=== PATIENT | female | born 1975 | race African-American/Black ===

== ENCOUNTER 2020-04-17 15:28 | Outpatient (CLI) | payer OTHER, SELFPAY ==
--- NOTE | ~2020-04-17 | MM_ITS ---
EXAMINATION: MM screening [facility] w dandre HISTORY: Screening mammogram TECHNIQUE: Craniocaudal and mediolateral oblique 3-D tomosynthesis images were obtained and synthetic 2-D images were generated. CAD analysis was submitted and interpreted. COMPARISON: 01/15/2019, 01/23/2018 bilateral digital screening mammogram examinations 01/26/2017 bilateral diagnostic digital mammogram 01/18/2017 bilateral digital screening mammogram BREAST PARENCHYMAL COMPOSITION: There are scattered areas of fibroglandular density. FINDINGS: There is no evidence of suspicious mass, calcification, or architectural distortion to sugg est malignancy in either breast. There has been no suspicious interval change. IMPRESSION: 1. No mammographic evidence of malignancy. 2. Recommend routine screening mammography in one year. BI-RADS Category 1: Negative Reviewed, dictated and finalized at location A.
== END 2020-04-17 15:29 | disposition home or self-care (01) ==
PROVIDERS: PCP Family Medicine; Visit Provider Obstetrics & Gynecology Gynecology
DX: Z12.31 Encounter for screening mammogram for malignant neoplasm of breast (principal)
CPT/HCPCS: 77063; 77067

== ENCOUNTER 2020-09-18 15:25 | Outpatient (CLI) | payer OTHER, SELFPAY ==
--- NOTE | ~2020-09-18 | XR_ITS ---
EXAMINATION: XR chest 2V EXAM DATE: 09/18/2020 15:49 INDICATION: Chest fracture 6-7 months. TECHNIQUE: Frontal and lateral projections of the chest obtained and reviewed. Comparison is made to prior examination from 07/16/12. FINDINGS: The lungs are clear. There are no pleural effusions. The cardiomediastinal silhouette is within normal limits. There is no pneumothorax suspected. The bones and soft tissues are unremarkab le. IMPRESSION: Unremarkable chest x-ray exam. Reviewed, dictated and finalized at location A. ITAL DIRECTOR
== END 2020-09-18 15:26 | disposition home or self-care (01) ==
LOC: ANHIMG 15:27
PROVIDERS: PCP Nurse Practitioner Family; Visit Provider Nurse Practitioner Family
DX: R07.89 Other chest pain (principal)
CPT/HCPCS: 71046

== ENCOUNTER 2021-06-30 16:21 | Outpatient (CLI) | payer OTHER, SELFPAY ==
--- NOTE | ~2021-06-30 | MM_ITS ---
EXAMINATION: MM screening [facility] BI w dandre HISTORY: Screening TECHNIQUE: Craniocaudal and mediolateral oblique 3-D tomosynthesis images were obtained and synthetic 2-D images were generated. CAD analysis was submitted and interpreted. COMPARISON: Comparison to multiple prior studies sequentially, with oldest reviewed study dated 01/2016. BREAST PARENCHYMAL COMPOSITION: There are scattered areas of fibroglandular density. FINDINGS: There is no evidence of suspicious mass, calcification, or architectural distortion to sugg est malignancy in either breast. There has been no suspicious interval change. IMPRESSION: 1. No mammographic evidence of malignancy. 2. Recommend routine screening mammography in one year. BI-RADS Category 1: Negative Reviewed, dictated and finalized at location A.
== END 2021-06-30 16:22 | disposition home or self-care (01) ==
LOC: ANHIMG 16:23
PROVIDERS: PCP Nurse Practitioner Family; Visit Provider Obstetrics & Gynecology Gynecology
DX: Z12.31 Encounter for screening mammogram for malignant neoplasm of breast (principal)
CPT/HCPCS: 77063; 77067

== ENCOUNTER → 2022-06-17 12:37 | Outpatient (CLI) | payer OTHER, SELFPAY ==
--- NOTE | ~2022-06-17 | US_ITS ---
EXAMINATION: US transvaginal DATE: 06/17/2022 13:17 INDICATION: Postmenopausal bleeding, pelvic pain TECHNIQUE: Multiple endovaginal sonographic images of the pelvis were obtained. COMPARISON: None. FINDINGS: The uterus measures 6.7 x 4.1 x 4.7 cm. A 2.2 cm isoechoic lesion of the lower uterine segm ent has the appearance of a subserosal fibroid. The endometrial complex measures 4 mm. The right ovar y measures 1.9 x 1 x 1.3 cm. The left ovary measures 2 x 1.6 x 1.7 cm. There is normal vascular flow in the ovaries. There is no free fluid in the pelvis. IMPRESSION: 1. No sonographic correlate for the patient's symptoms. Reviewed, dictated and finalized at location A.
== END ==
PROVIDERS: PCP Obstetrics & Gynecology Gynecology; Visit Provider Obstetrics & Gynecology Gynecology
DX: N95.0 Postmenopausal bleeding (principal)
CPT/HCPCS: 76830

== ENCOUNTER 2022-08-25 14:51 | Outpatient (CLI) | payer OTHER, SELFPAY ==
--- NOTE | ~2022-08-25 | DEXA_ITS ---
Bone Density Report Name: MILEY DE SANTIAGO Age: 46 Sex: Female Ethnicity: White Date of : 1975 Indication: postmenopausal; Referring Provider: MILAN MATTSON Study: Bone densitometry was performed. Exam Date: August 25, 2022 Accession number: [id number] Bone Density: Region BMD T-score Z-score Classification AP Spine(L1-L4) 0.897 -1.4 -0.7 Osteopenia Femoral Neck (Left) 1.046 1.8 2.4 Normal Total Hip (Left) 1.136 1.6 2.0 Normal Femoral Neck (Right) 1.028 1.6 2.3 Normal Total Hip (Right) 1.110 1.4 1.8 Normal Total Hip Mean 1.123 1.5 1.9 Normal World Health Organization criteria for BMD impression classify patients as: Normal (T-score at or above -1.0), Osteopenia (T-score between -1.0 and -2.5), or Osteoporosis (T-score at or below -2.5). 10-year Fracture Risk(1): Major Osteoporotic Fracture 2.9% Hip Fracture < 0.1% Reported Risk Factors: [place] (), Neck BMD=1.028, BMI=29.3 (1) FRAX(R) Version 3.08. Fracture probability calculated for an untreated patient. Fracture probability may be lower if the patient has received treatment. Clinical Information Provided by Patient: Patient maximum height was 59 Menopause Age: 43 Drinks caffeinated beverages Onset of menses at age 8 Number of children 1 Impression: The patient has low bone mass, based on the Total Spine T-score. Discussion: BONE DENSITY IS LOW AT ONE OR MORE SKELETAL SITES. This patient's lowest T-score is low at one or more skeletal sites. It meets the World Health Organization's (WHO) criteria for ?low bone mass? (T-score between -1.0 and -2.5). The patient's 10-year risk of fracture as calculated by FRAX is less than the threshold where pharmacological therapy is recommended by the National Osteoporosis Foundation (NOF). However, all treatment decisions require clinical judgment and consideration of individual patient factors, including patient preferences, comorbidities, previous drug use, risk factors not captured in the FRAX model (e.g., frailty, falls, vitamin D deficiency, increased bone turnover, interval significant decline in bone density) and possible under or overestimation of fracture risk by FRAX. The patient should follow a healthful lifestyle (good nutrition with adequate calcium and vitamin D, and appropriate weight-bearing exercise). Follow-Up: Consider repeating this study in 2 to 3 years to reassess this patient's status, or sooner if there is some new clinical indication. Reported by: [facility] on 08/25/2022 3:32:00 PM. Reviewed, dictated and finalized at location A. KATELYNN
--- NOTE | ~2022-08-25 | MM_ITS ---
EXAMINATION: MM screening [facility] BI w dandre HISTORY: Screening mammogram TECHNIQUE: Craniocaudal and mediolateral oblique 3-D tomosynthesis images were obtained and synthetic 2-D images were generated. CAD analysis was submitted and interpreted. COMPARISON: 06/30/2021, 04/17/2020, 01/15/2019 BREAST PARENCHYMAL COMPOSITION: There are scattered areas of fibroglandular density. FINDINGS: No suspicious mass, calcification, or architectural distortion are identified in either zane ast to suggest malignancy. There has been no suspicious interval change. IMPRESSION: 1. No mammographic evidence of malignancy. 2. Recommend routine screening mammography in one year. BI-RADS Category 1: Negative Reviewed, dictated and finalized at location A.
== END 2022-08-25 14:52 | disposition home or self-care (01) ==
PROVIDERS: Visit Provider Obstetrics & Gynecology Gynecology
DX: Z12.31 Encounter for screening mammogram for malignant neoplasm of breast (principal); Z78.0 Asymptomatic menopausal state; M85.88 Other specified disorders of bone density and structure, other site
CPT/HCPCS: 77063; 77067; 77080

== ENCOUNTER 2024-08-06 09:39 | Outpatient (CLI) | payer OTHER, SELFPAY ==
--- NOTE | ~2024-08-06 | MM_ITS ---
EXAMINATION: MM screening [facility] w d[facility]re HISTORY: Screening TECHNIQUE: Craniocaudal and mediolateral oblique 3-D tomosynthesis images were obtained and synthetic 2-D images were generated. CAD analysis was submitted and interpreted. COMPARISON: Comparison to multiple prior studies sequentially, with oldest reviewed study dated 06/28. BREAST PARENCHYMAL COMPOSITION: Not dense: There are scattered areas of fibroglandular density. FINDINGS: There is no evidence of suspicious mass, calcification, or architectural distortion to sugg est malignancy in either breast. There has been no suspicious interval change. IMPRESSION: 1. No mammographic evidence of malignancy. 2. Recommend routine screening mammography in one year. BI-RADS Category 1: Negative Reviewed, dictated and finalized at location B.
== END 2024-08-06 09:40 | disposition home or self-care (01) ==
PROVIDERS: Visit Provider Obstetrics & Gynecology Gynecology
DX: Z12.31 Encounter for screening mammogram for malignant neoplasm of breast (principal)
CPT/HCPCS: 77063; 77067

== ENCOUNTER 2025-01-10 13:34 | Outpatient (CLI) | payer OTHER, SELFPAY ==
--- NOTE | ~2025-01-10 | DEXA_ITS ---
Bone Density Report Name: MILEY DE SANTIAGO Age: 49 Sex: Female Ethnicity: White Date of : 1975 Indication: osteopenia; Referring Provider: MILAN MATTSON Study: Bone densitometry was performed. Exam Date: January 10, 2025 Accession number: [id number] Bone Density: Region BMD T-score Z-score Classification AP Spine(L1-L4) 0.869 -1.6 -0.8 Osteopenia Femoral Neck (Left) 1.101 2.3 3.1 Normal Total Hip (Left) 1.190 2.0 2.5 Normal Femoral Neck (Right) 1.049 1.8 2.6 Normal Total Hip (Right) 1.150 1.7 2.2 Normal Total Hip Mean 1.170 1.9 2.4 Normal World Health Organization criteria for BMD impression classify patients as: Normal (T-score at or above -1.0), Osteopenia (T-score between -1.0 and -2.5), or Osteoporosis (T-score at or below -2.5). 10-year Fracture Risk(1): Major Osteoporotic Fracture 3.3% Hip Fracture < 0.1% Reported Risk Factors: [place] (), Neck BMD=1.049, BMI=29.3 (1) FRAX(R) Version 3.08. Fracture probability calculated for an untreated patient. Fracture probability may be lower if the patient has received treatment. Previous Exams: Region Exam Age BMD T-score BMD Change BMD Change Date g/cm2 vs Baseline vs Previous AP Spine (L1-L4) 01/10/2025 49 0.869 -1.6 -0.028 (-3.1%) -0.028 (-3.1%) 08/25/2022 46 0.897 -1.4 Total Hip(Left) 01/10/2025 49 1.190 2.0 0.054 (4.7%)# 0.054 (4.7%)# 08/25/2022 46 1.136 1.6 Total Hip(Right) 01/10/2025 49 1.150 1.7 0.040 (3.6%)# 0.040 (3.6%)# 08/25/2022 46 1.110 1.4 *Denotes significance at 95% confidence level, LSC for AP Spine = 0.022 g/cm2, LSC for Total Hip = 0.027 g/cm2 # Denotes dissimilar scan types or analysis methods Clinical Information Provided by Patient: Has used the following medications: Vitamin D, Calcium Patient maximum height was 59 Menopause Age: 43 Drinks caffeinated beverages Onset of menses at age 8 Number of children 1 Impression: The patient has low bone mass, based on the Total Spine T-score. No significant bone loss was observed. Discussion: BONE DENSITY IS LOW AT ONE OR MORE SKELETAL SITES. This patient's lowest T-score is low at one or more skeletal sites. It meets the World Health Organization's (WHO) criteria for ?low bone mass? (T-score between -1.0 and -2.5). The patient's 10-year risk of fracture as calculated by FRAX is less than the threshold where pharmacological therapy is recommended by the National Osteoporosis Foundation (NOF). However, all treatment decisions require clinical judgment and consideration of individual patient factors, including patient preferences, comorbidities, previous drug use, risk factors not captured in the FRAX model (e.g., frailty, falls, vitamin D deficiency, increased bone turnover, interval significant decline in bone density) and possible under or overestimation of fracture risk by FRAX. The patient should follow a healthful lifestyle (good nutrition with adequate calcium and vitamin D, and appropriate weight-bearing exercise). Follow-Up: Consider repeating this study in 2 to 3 years to reassess this patient's status, or sooner if there is some new clinical indication. Reported by: [facility]IL[facility] on 01/10/2025 2:03:00 PM. Reviewed, dictated and finalized at location A.
--- OUTSIDE RECORDS SUMMARY | 2025-01-10 13:37 | XMS_ITS | Clinical Summary ---
Author Organization [address] Address [address] [place] [id number] Care Team Providers Care Business Systems Developer Name Role Phone Unknown, Notinfile Primary Care Provider Unavail able Allergies No known active allergies Medications fish oil-dha-epa 1,200-144-216 mg capsule Take by mouth Active coenzyme Q10 10 mg capsule Take 1 capsule (10 mg total) by mouth daily Active Active Problems No known active problems Encounters Date Type Department Care Team Description 11/13/2024 Telephone [facility] Medical [facility] Convenient Care at [address] [phone] Helga Araiza MA from Last 3 Months Surgical History Surgery Date Site/Laterality Comments SECTION Social History Tobacco Use Types Packs/Day Years Used Date Smoking Tobacco: Never Smokeless Tobacco: Never Comments Unknown Sex and Gender Information Value Date Recorded Sex Assigned at Not on file Legal Sex Female 2:35 AM OUT AND OUT CIGAR MAKER HAND Gender Identity Not on file Sexual Orientation Not on file Obstetrics History Last Filed Vital Signs Vital Sign Reading Time Taken Comments Blood Pressure 126/80 10/04/2024 2:37 PM OUT AND OUT CIGAR MAKER HAND Pulse 76 10/04/2024 2:37 PM OUT AND OUT CIGAR MAKER HAND Temperature 36.8 C (98.3 F) 10/04/2024 2:37 PM OUT AND OUT CIGAR MAKER HAND Respiratory Rate 20 10/04/2024 2:37 PM OUT AND OUT CIGAR MAKER HAND Oxygen Saturation 98% 10/04/2024 2:3 7 PM OUT AND OUT CIGAR MAKER HAND Inhaled Oxygen Concentration - - Weight 63.5 kg (140 lb) 10/04/2024 2:37 PM OUT AND OUT CIGAR MAKER HAND Patient reported Height 149.9 cm (4' 11 ) 10/04/2024 2:3 7 PM OUT AND OUT CIGAR MAKER HAND Patient reported Body Mass Index 28.28 10/04/2024 2:37 PM OUT AND OUT CIGAR MAKER HAND Plan of Treatment Health Maintenance Due Date Last Done Comments Breast Cancer Screening-Mammogram 1975 Cervical Cancer Screening 1975 Colon Cancer Screening-Colonoscopy 1973 Depression Screening 1975 Hepatitis C Screening 1973 DTaP/Tdap/Td Vaccine (1 - Tdap) 1984 Hepatitis B Screening 1991 Regular Well Visit/Exam 18-64 1991 Zoster Vaccine (1 of 2) 2023 Covid-19 Vaccine ( season) 2024 11/03/2023, 10/15/2022, 10/25/2021, Additional history exists Influenza Vaccine (#1) 2024 07/31/2020 Pneumococcal vaccine <65 Aged Out No longer eligible based on patient's age to complete this topic Insurance [facility] HMO/PPO Address: [facility] [address] [place] [address] Care Teams Business Systems Developer Relationship Specialty Start Date End Date Unknown, Notinfile PCP - General 10/04/24
--- OUTSIDE RECORDS SUMMARY | 2025-01-10 13:37 | XMS_ITS | Referral Summary ---
Author Organization [facility] Address [address] [place] [address] Care Team Providers Care Environment Coordinator Name Role Phone Unavailable Primary Care Provider Unavailabl e Source Comments [facility],non-owned Affiliates and Associated Physician Practices is amultiple site organization consisting of ambulatory clinics and hospital sitesin [place], [place], [place] and [place]. This disclosure is being madepursuant to the Care Everywhere program and may not contain all information available regarding this patient. Last updated 18.[facility] Social History Tobacco Use Types Packs/Day Years Used Date Smoking Tobacco: Never Assessed Sex and Gender Information Value Date Recorded Sex Assigned at Not on file Gender Identity Not on file Sexual Orientation Not on file Plan of Treatment Not on file
--- OUTSIDE RECORDS SUMMARY | 2025-01-10 13:37 | XMS_ITS | Patient Health Summary ---
Author Organization [facility] Address [address] [place] [address] Care Team Providers Care Seafood Preparer Name Role Phone Unavailable Primary Care Provider Unavailabl e Note from [facility],non-owned Affiliates and Associated Physician Practices is amultiple site organization consisting of ambulatory clinics and hospital sitesin [place], [place], [place] and [place]. This disclosure is being madepursuant to the Care Everywhere program and may not contain all information available regarding this patient. Last updated 18.[facility] Social History Tobacco Use Types Packs/Day Years Used Date Smoking Tobacco: Never Assessed Sex and Gender Information Value Date Recorded Sex Assigned at Not on file Gender Identity Not on file Sexual Orientation Not on file Procedures * SONOGRAM - COMPLETE(Performed 08/10/2010) Performed for Advanced maternal age Results * SONOGRAM - COMPLETE (08/10/2010) Anatomical Region Laterality Modality Other Henna Martines MD [facility] ORDERABLES
--- OUTSIDE RECORDS SUMMARY | 2025-01-10 13:37 | XMS_ITS | Encounter Summary ---
Author Organization [facility] Healthcare Address [address] [place] [id number] Care Team Providers Care Hazardous Materials Driver Name Role Phone Unknown, Kym Primary Care Provider Unavail able Encounter Details Date Type Department Care Team (Late st Contact Info) Description 11/13/2024 Telephone [facility] Medical Group Convenient Care at [address] [phone] Helga Araiza MA Social History Tobacco Use Types Packs/Day Years Used Date Smoking Tobacco: Never Smokeless Tobacco: Never Comments Unknown Sex and Gender Information Value Date Recorded Sex Assigned at Not on file Legal Sex Female 2:35 AM EDUCATION AND TRAINING COORDINATOR Gender Identity Not on file Sexual Orientation Not on file documented as of this encounter Plan of Treatment Not on file documented as of this encounter Visit Diagnoses Not on filedocumented in this encounter Care Teams Hazardous Materials Driver Relationship Specialty Start Date End Date Unknown, Kym PCP - General 10/04/24 documented as of this encounter
--- OUTSIDE RECORDS SUMMARY | 2025-01-10 13:37 | XMS_ITS | Referral Summary ---
Author Organization [address] Address [address] [place] [id number] Care Team Providers Care Python Engineer Name Role Phone Unknown, Notinfile Primary Care Provider Unavail able Encounters Date Type Department Care Team Description 11/13/2024 Telephone [facility] Medical Group Convenient Care at [address] [phone] Helga Araiza MA from Last 3 Months Allergies No known active allergies Medications fish oil-dha-epa 1,200-144-216 mg capsule Take by mouth Active coenzyme Q10 10 mg capsule Take 1 capsule (10 mg total) by mouth daily Active Active Problems No known active problems Social History Tobacco Use Types Packs/Day Years Used Date Smoking Tobacco: Never Smokeless Tobacco: Never Comments Unknown Sex and Gender Information Value Date Recorded Sex Assigned at Not on file Legal Sex Female 2:35 AM COMMUTATOR INSPECTOR Gender Identity Not on file Sexual Orientation Not on file Last Filed Vital Signs Vital Sign Reading Time Taken Comments Blood Pressure 126/80 10/04/2024 2:37 PM COMMUTATOR INSPECTOR Pulse 76 10/04/2024 2:37 PM COMMUTATOR INSPECTOR Temperature 36.8 C (98.3 F) 10/04/2024 2:37 PM COMMUTATOR INSPECTOR Respiratory Rate 20 10/04/2024 2:37 PM COMMUTATOR INSPECTOR Oxygen Saturation 98% 10/04/2024 2:3 7 PM COMMUTATOR INSPECTOR Inhaled Oxygen Concentration - - Weight 63.5 kg (140 lb) 10/04/2024 2:37 PM COMMUTATOR INSPECTOR Patient reported Height 149.9 cm (4' 11 ) 10/04/2024 2:3 7 PM COMMUTATOR INSPECTOR Patient reported Body Mass Index 28.28 10/04/2024 2:37 PM COMMUTATOR INSPECTOR Plan of Treatment Not on file Insurance [facility] Care Teams Python Engineer Relationship Specialty Start Date End Date Unknown, Notinfile PCP - General 10/04/24
--- OUTSIDE RECORDS SUMMARY | 2025-01-10 13:37 | XMS_ITS | Clinical Summary ---
Author Organization [facility] [employer] Address [address] [place] [address] Care Team Providers Care Window Maker Name Role Phone Unavailable Primary Care Provider Unavailabl e Source Comments [facility],non-owned Affiliates and Associated Physician Practices is amultiple site organization consisting of ambulatory clinics and hospital sitesin [place], [place], [place] and [place]. This disclosure is being madepursuant to the Care Everywhere program and may not contain all information available regarding this patient. Last updated 18.[facility] [employer] Social History Tobacco Use Types Packs/Day Years Used Date Smoking Tobacco: Never Assessed Sex and Gender Information Value Date Recorded Sex Assigned at Not on file Gender Identity Not on file Sexual Orientation Not on file Plan of Treatment Health Maintenance Due Date Last Done Comments COLOGUARD (AGES 45-75) - COL ON CA SCREENING 1973 COLON MONITORING 1973 COLONOSCOPY - COLON CA SCREENING 1973 CT COLONOGRAPHY - COLON CA SCREENING 1973 Colorectal Cancer Screening 1973 FIT - COLON CA SCREENING 1973 FLEX SIG - COLON CA SCREENING 1973 LIPID TESTING 1973 MAMMOGRAM 1973 PAP SMEAR 1973 HIV SCREENING 1988 HEPATITIS C SCREENING 11/11/1991 DTAP/TDAP/TD VACCINES (1 - Tdap) 1992 HEPATITIS B VACCINE (1 of 3 - 19+ 3-dose series) 1992 PNEUMOCOCCAL VACCINE 50+ (1 of 1 - PCV) 2023 ZOSTER VACCINE (1 of 2) 2023 COVID-19 VACCINE ( - 2023-2 5 season) 2024 INFLUENZA VACCINE (#1) 2024 DEPRESSION SCREENING 10/30/2024 HIB VACCINE Aged Out No longer eligi ble based on patient's age to complete this topic HPV VACCINE Aged Out No longer eligi ble based on patient's age to complete this topic MENINGOCOCCAL (Group B) VACC INE SHARED DECISION-MAKING Aged Out No longer eligibl e based on patient's age to complete this topic MENINGOCOCCAL GROUPS A/C/Y/W VACCINE Aged Out No longer eligible b ased on patient's age to complete this topic PNEUMOCOCCAL VACCINE Aged Out No long er eligible based on patient's age to complete this topic
== END 2025-01-10 13:35 | disposition home or self-care (01) ==
LOC: ANHIMG 13:36
PROVIDERS: PCP Family Medicine; Visit Provider Obstetrics & Gynecology Gynecology
DX: M85.88 Other specified disorders of bone density and structure, other site (principal); Z78.0 Asymptomatic menopausal state
CPT/HCPCS: 77080

== ENCOUNTER 2025-08-28 15:45 | Outpatient (CLI) | payer OTHER, SELFPAY ==
--- NOTE | ~2025-08-28 | MM_ITS ---
EXAMINATION: MM screening [facility] BI w dandre HISTORY: Screening TECHNIQUE: Craniocaudal and mediolateral oblique 3-D tomosynthesis images were obtained and synthetic 2-D images were generated. CAD analysis was submitted and interpreted. COMPARISON: Comparison to multiple prior studies sequentially, with oldest reviewed study dated 01/23/2018. BREAST PARENCHYMAL COMPOSITION: Not dense: There are scattered areas of fibroglandular density. FINDINGS: There is no evidence of suspicious mass, calcification, or architectural distortion to suggest malignancy in either breast. There has been no suspicious interval change. IMPRESSION: 1. No mammographic evidence of malignancy. 2. Recommend routine screening mammography in one year. BI-RADS Category 1: Negative Reviewed, dictated and finalized at location B.
--- OUTSIDE RECORDS SUMMARY | 2025-08-28 15:49 | XMS_ITS | Clinical Summary ---
Author Organization [address] Address [address] [place] [address] Care Team Providers Care Brake Repairer Air Name Role Phone Daisy Verduzco DO Primary Care Provider +1- [phone] Allergies No known active allergies Medications fish oil-dha-epa 1,200-144-216 mg capsule Take by mouth Activ e coenzyme Q10 10 mg capsule Take 1 capsule (10 mg total) by mouth daily Active methylPREDNISol one (MEDROL DOSEPACK) 4 mg Dosepack Take as directed on package. 21 tablet 08/25/2025 08/31/20 Active Active Problems Problem Noted Date Diagnosed Date Dyslipidemia 08/22/2025 Vitamin D deficiency 08/22/2025 Encounters Date Type Department Care Team Description 08/25/2025 12:40 PM CDT Ancillary Procedure [facility] Imaging at [address] [address] Acute cough 08/25/2025 12:15 PM CDT Office Visit [facility] Convenient Care at [address] [address] Dinah Wilson PA Laryngitis (Primary Dx); Acute cough 08/25/2025 Results Follow-Up [facility] at [address] [address] Dinah Wilson PA XR Chest Pa Lateral 2 Views 08/23/2025 Results Follow-Up [facility] at [address] [phone] Andria Montalvo NP Influenza A/B, RSV, and COVID-19 PCR Nasopharyngeal, Throat culture Throat 08/22/2025 6:45 PM CDT Office Visit [facility] at [address] [address] Andria Montalvo NP Nasopharyngitis acute (Primary Dx) 08/22/2025 6:30 PM CDT - 08/22/2025 11:59 [place] [address] Nasopharyngitis acute Discharge Disposition: Discharge to home or self care from Last 3 Months Surgical History Surgery Date Site/Laterality Comments SECTION Social History Tobacco Use Types Packs/Day Years Used Date Smoking Tobacco: Never Smokeless Tobacco: Never Comments Unknown Sex and Gender Information Value Date Recorded Sex Assigned at Not on file 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 Gender Identity Not on file Sexual Orientation Not on file Obstetrics History Last Filed Vital Signs Vital Sign Reading Time Taken Comments Blood Pressure 134/82 08/25/2025 12:15 PM CDT Pulse 75 08/25/2025 12:15 PM CDT Temperature 37.2 C (98.9 F) 08/25/2025 12:15 PM CDT Respiratory Rate 20 08/25/2025 12:15 PM CDT Oxygen Saturation 99% 08/25/2025 12:15 PM CDT Inhaled Oxygen Concentration - - Weight 59 kg (130 lb) 08/25/2025 12:15 PM CDT Height 152.4 cm (5') 08/22/2025 6:12 PM CDT Body Mass Index 25.39 08/22/2025 6:12 PM CDT Plan of Treatment Health Maintenance Due Date Last Done Comments Breast Cancer Screening-Mammogram 1973 Cervical Cancer Screening 1973 Colon Cancer Screening-Colonoscopy 1973 Depression Screening 1973 Hepatitis C Screening 1973 DTaP/Tdap/Td Vaccine (1 - Tdap) 1984 Hepatitis B Screening 1991 Regular Well Visit/Exam 18-64 1991 Zoster Vaccine (1 of 2) 2023 Covid-19 Vaccine ( season) 2025 11/03/2023, 10/15/2022, 10/25/2021, Additional history exists Influenza Vaccine (#1) 2025 07/31/2020 Pneumococcal vaccine <65 Aged Out No longer eligible based on patient's age to complete this topic Procedures Procedure Name Priority Date/Time Associated Diagnosis Comments XR CHEST PA LATERAL 2 VIEWS Schedule GINA, Read GINA (Appt Today, Awaiting Results) 08/25/2025 12:47 PM CDT Acute cough POCT RAPID STREP Routine 08/25/2025 12:3 4 PM CDT Laryngitis THROAT CULTURE Routine 08/22/2025 6:30 PM CDT Nasopharyngitis acute INFLUENZA A/B, RSV, AND COVID-19 PCR Routine 08/22/2025 6:30 PM CDT Nasopharyngitis acute POCT RAPID STREP Routine 08/22/2025 6:09 PM CDT Nasopharyngitis acute from Last 3 Months Results * XR Chest Pa Lateral 2 Views (08/25/2025 12:47 PM CDT) Anatomical Region Laterality Modality Body, Chest N/A Digital Radiogra phy 08/25/2025 12:5 9 PM CDT Impressions 08/25/2025 12:59 PM CDT No acute cardiopulmonary process. Electronically signed by: Jacques Mccloud M.D. Narrative 08/25/2025 12:59 PM CDT EXAMINATION: XR CHEST PA LATERAL 2 VIEWS HISTORY: Acute cough. TECHNIQUE: Frontal and lateral radiographic views acquired of the chest. COMPARISON: No prior chest imaging available at time of interpretation. FINDINGS: Trachea midline. Heart normal in size and contour. Hilar and mediastinal structures unremarkable. No focal consolidation. No pleural effusion. No pneumothorax. No tubes/lines in the chest. No acute osseous abnormality. Procedure Note Jacques Mccloud MD - 08/25/2025 EXAMINATION: XR CHEST PA LATERAL 2 VIEWS HISTORY: Acute cough. TECHNIQUE: Frontal and lateral radiographic views acquired of the chest. COMPARISON: No prior chest imaging available at time of interpretation. FINDINGS: Trachea midline. Heart normal in size and contour. Hilar and mediastinal structures unremarkable. No focal consolidation. No pleural effusion. No pneumothorax. No tubes/lines in the chest. No acute osseous abnormality. IMPRESSION: No acute cardiopulmonary process. Electronically signed by: Jacques Mccloud M.D. Dinah GALLO IMG XR PROCEDURES Final Result * POCT rapid strep A (08/25/2025 12:34 PM CDT) Pathologist [facility] Rapid Strep A, POC Negative Negative Swab 08/25/2025 12:3 4 PM CDT Dinah GALLO POINT OF CARE TEST ORDER HUMERA Final Result * Influenza A/B, RSV, and COVID-19 PCR Nasopharyngeal (08/22/2025 6:30 PM CDT) [facility] COVID-19 RNA Negative Negative [facility] Influenza A RNA Negative Negative [facility] Influenza B RNA Negative Negative [facility] RSV RNA Negative Negative [facility] Comment: Interpretive data: Testing performed by [facility]. This test is performed using the [employer] Xpert Xpress CoV-2/Flu/RSV plus assay. This is a multiplex, real-time reverse transcriptase PCR assay intended for the qualitative detection of nucleic acid from SARS-CoV-2, influenza A, influenza B, and respiratory syncytial virus. This assay has been cleared by the [place] Food and Drug administration. The performance characteristics have been verified by the [facility]. Results must be considered in the clinical context, and a negative result does not rule out infection. Interpretive Data last revised 2023 Nasopharyngeal 08/22/2025 6: 30 PM CDT 08/22/2025 9:37 PM CDT Narrative [facility] - 08/22/2025 10:20 PM CDT Is the Patient experiencing symptoms consistent with COVID?->Yes Andria Montalvo NP LAB MICROBIOLOGY - GENERAL ORD ERABLES Final Result [facility] [address] Department [place] [address] [facility] * Throat culture Throat (08/22/2025 6:30 PM CDT) Report Final Report: No growth of pathogens. Comment:Testing performed by : [facility], [address] [place] [address] Throat 08/22/2025 6:30 PM CDT 08/23/2025 12:21 AM CDT Narrative [facility] 08/23/2025 8:33 PM CDT Testing performed by [facility] ([phone]). Andria Montalvo NP LAB MICROBIOLOGY - GENERAL ORD ERABLES Final Result Performing Organization Address City/[facility]/ZIP Co de Phone Number [facility] [address] [address] [place] [address] * POCT rapid strep A (08/22/2025 6:09 PM CDT) Rapid Strep A, POC Negative Negative Swab 08/22/2025 6:09 PM CDT Andria Montalvo NP POINT OF CARE TEST ORDERABLES Final Result from Last 3 Months Insurance [facility] Care Teams Brake Repairer Air Relationship Specialty Start Date End Date Daisy Verduzco DO [facility] [address] [place] [phone] PCP - General Family Medicine 08/22/25
--- OUTSIDE RECORDS SUMMARY | 2025-08-28 15:49 | XMS_ITS | Encounter Summary ---
Author Organization [facility] Healthcare Address [address] [place] [address] Care Team Providers Care Fisher Spear Name Role Phone Unknown, Kym Primary Care Provider Unavail able aDisy Verduzco DO Primary Care Provider +1- [phone] Encounter Details Date Type Department Care Team (Late st Contact Info) Description 11/13/2024 Telephone [facility] Care at [address] [phone] Helga Araiza MA Social History Tobacco Use Types Packs/Day Years Used Date Smoking Tobacco: Never Smokeless Tobacco: Never Comments Unknown Sex and Gender Information Value Date Recorded Sex Assigned at Not on file 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 Gender Identity Not on file Sexual Orientation Not on file documented as of this encounter Plan of Treatment Not on file documented as of this encounter Visit Diagnoses Not on filedocumented in this encounter Additional Health Concerns Infection Onset Date Last Indicated Resolved Time COVID: Suspected 08/22/2025 08/22/2025 08/22/2025 10:21 PM CDT documented as of this encounter Care Teams Fisher Spear Relationship Specialty Start Date End Date Unknown, Kym PCP - General 10/04/24 08/21/25 Daisy Verduzco DO [address] [place] [address] [place] [address] PCP - General Family Medicine 08/22/25 documented as of this encounter
--- OUTSIDE RECORDS SUMMARY | 2025-08-28 15:49 | XMS_ITS | Encounter Summary ---
Author Organization [facility] Healthcare Address [address] [place] [address] Care Team Providers Care Package Center Supervisor Name Role Phone Daisy Verduzco DO Primary Care Provider +1- [phone] Encounter Details Date Type Department Care Team (Late st Contact Info) Description 08/23/2025 Results Follow-Up [facility] Convenient Care at [place] [address] [place] [address] Andria Montalvo NP [address] [place] [address] [address] [place] [address] Influenza A/B, RSV, and COVID-19 PCR Nasopharyngeal, Throat culture Throat Social History Tobacco Use Types Packs/Day Years Used Date Smoking Tobacco: Never Smokeless Tobacco: Never Comments Unknown Sex and Gender Information Value Date Recorded Sex Assigned at Not on file 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 * Result Encounter Note - Jayshree Freeman LPN - 08/24/2025 9:27 AM CDT LVM for pt to return call to clinic to notify them of labs results. * Result Encounter Note - Andria Montalvo NP - 08/24/2025 7:51 AM CDT Please alert patient of negative strep culture. Patient should continue tylenol/ibuprofen as directed for discomfort and f/u with PCP if symptoms persist. * Result Encounter Note - Jayshree Freeman LPN - 08/23/2025 10:48 AM CDT Notified pt of their results and follow up instructions. Pt verbalized understanding. * Result Encounter Note - Jayshree Freeman LPN - 08/23/2025 10:30 AM CDT LVM for pt to return call to clinic to notify them of labs results. * Result Encounter Note - Andria Montalvo NP - 08/23/2025 7:36 AM CDT Please notify patient of negative COVID-19/RSV/FLU test. Patient should rest, stay hydrated, and take OTC medications as needed. Monitor symptoms and if they worsen follow up with primary care doctoror ER if needed. documented in this encounter Plan of Treatment Not on file documented as of this encounter Visit Diagnoses Not on filedocumented in this encounter Care Teams Package Center Supervisor Relationship Specialty Start Date End Date Daisy Verduzco DO [facility] [facility] [place] [address] PCP - General Family Medicine 08/22/25 documented as of this encounter
--- OUTSIDE RECORDS SUMMARY | 2025-08-28 15:49 | XMS_ITS | Clinical Summary ---
Author Organization [facility] Address [address] [place] [address] Care Team Providers Care Heat Treater Name Role Phone Unavailable Primary Care Provider Unavailabl e Source Comments [facility],non-owned Affiliates and Associated Physician Practices is amultiple site organization consisting of ambulatory clinics and hospital sitesin [place], [place], [place] and [place]. This disclosure is being madepursuant to the Care Everywhere program and may not contain all information available regarding this patient. 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
--- OUTSIDE RECORDS SUMMARY | 2025-08-28 15:49 | XMS_ITS | Encounter Summary ---
Author Organization [facility] Healthcare Address [address] [place] [address] Care Team Providers Care [place] Supervisor Name Role Phone Daisy Verduzco DO Primary Care Provider +1- [phone] Encounter Details Date Type Department Care Team (Late st Contact Info) Description 08/25/2025 Results Follow-Up [facility] Convenient Care at [address] [address] Dinah Wilson PA [address] [place] [address] [address] [place] [address] XR Chest Pa Lateral 2 Views Social History Tobacco Use Types Packs/Day Years Used Date Smoking Tobacco: Never Smokeless Tobacco: Never Comments Unknown Sex and Gender Information Value Date Recorded Sex Assigned at Not on file 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 * Result Encounter Note - Dinah Wilson PA - 08/25/2025 1:55 PM CDT Please inform patient of negative chest xray. documented in this encounter Plan of Treatment Not on file documented as of this encounter Visit Diagnoses Not on filedocumented in this encounter Care Teams [place] Supervisor Relationship Specialty Start Date End Date Daisy Verduzco DO [facility] [facility] [address] [place] [id number] PCP - General Family Medicine 08/22/25 documented as of this encounter
== END 2025-08-28 15:46 | disposition home or self-care (01) ==
LOC: ANHFOHIMG 15:48
PROVIDERS: PCP Family Medicine; Visit Provider Obstetrics & Gynecology Gynecology
DX: Z12.31 Encounter for screening mammogram for malignant neoplasm of breast (principal)
CPT/HCPCS: 77063; 77067